=== PATIENT | female | born 1980 | race Caucasian/White ===

== ENCOUNTER 2019-02-05 11:56 | Day surgery (SDC) | payer OTHER ==
[2019-02-05] MEDS ORDERED: PROPOFOL 20 ML (14:53)
[2019-02-05] MEDS ORDERED: FENTAnyl 50 MCG/ML VIAL (14:53)
== END 2019-02-05 16:17 | disposition home or self-care (01) ==
LOC: GIL 11:56
DX: R19.4 Change in bowel habit (principal); K29.50 Unspecified chronic gastritis without bleeding; K20.9 Esophagitis, unspecified
CPT/HCPCS: 43239; 84703; 88305; 88312